=== PATIENT | male | born 1985 | race Caucasian/White ===

== ENCOUNTER 2016-08-09 03:57 | Emergency (ER) | payer SELFPAY ==
[~2016-08-09] VITALS: Ht 167.6 cm; Wt 63.5 kg
--- NOTE | 2016-08-09 03:57 | NUR ---
PT [facility] [employer], PREBOOK. TAKEN TO BED 1
--- NOTE | 2016-08-09 03:58 | NUR ---
31Y M [employer] [employer] FOR PRE[employer]OOK, FACIAL TRAUMA, +ETOH
[2016-08-09 04:01] VITALS: BP 115/69
--- NOTE | 2016-08-09 04:37 | NUR ---
Dr. Gilliam evaluating patient at bedside.
[2016-08-09] MEDS ORDERED: BACITRACIN OINT 500 UNITS/GM PKT TP ONE (04:40)
--- NOTE | 2016-08-09 05:03 | NUR ---
PT RETURN FROM CT
[2016-08-09 05:41] VITALS: BP 121/72
--- NOTE | 2016-08-09 05:41 | NUR ---
PATIENT BIB POLICE DEPT. PATIENT EXAMINED BY DR. COLE. PATIENT MEDICALLY CLEARED AND RELEASED IN CUSTODY IN STABLE CONDITION. ORIGINAL PRE-BOOK FORM GIVEN TO OFFICER [place].
--- NOTE | 2016-08-09 05:41 | NUR ---
Patient discharged with v/s stable. Written and verbal after care instructions given and explained. Patient verbalized understanding. Police with in custody. All questions addressed prior to discharge. Advised to follow up with PMD.
== END 2016-08-09 05:41 | disposition home or self-care (01) ==
LOC: MED 03:57
DX: S00.33XA Contusion of nose, initial encounter (principal); F10.129 Alcohol abuse with intoxication, unspecified; X58.XXXA Exposure to other specified factors, initial encounter; Y93.89 Activity, other specified; Y92.89 Other specified places as the place of occurrence of the external cause; Y99.8 Other external cause status
CPT/HCPCS: 70450; 70486; 90715; 99284